=== PATIENT | female | born 1975 | race Hispanic/Latino ===

== ENCOUNTER 2016-11-01 11:06 | Emergency (ER) | payer MEDICAID ==
[2016-11-01 12:02] LABS: Basophils % (Auto) 2.3 % (0.0-1.8); Eosinophils % (Auto) 2.3 % (0.0-4.3); Hematocrit 29.5 % (30.3-42.9); Mean Corpuscular HGB Conc 31 % (30-34); Platelet Count 325 K/mm3 (140-440); Red Blood Count 4.31 M/mm3 (3.65-5.03); Red Cell Distribution Width 18.7 % (13.2-15.2); White Blood Count 7.3 K/mm3 (4.5-11.0)
[2016-11-01 12:04] LABS: Mean Corpuscular Hemoglobin 21 pg (28-32); Mean Corpuscular Volume 68 fl (79-97)
[2016-11-01 12:12] LABS: Alanine Aminotransferase 19 units/L (7-56); Albumin 3.6 g/dL (3.9-5); Albumin/Globulin Ratio 0.9 %; Alkaline Phosphatase 61 units/L (35-129); Anion Gap 16 mmol/L; Blood Urea Nitrogen 6 mg/dL (7-17); Calcium 8.7 mg/dL (8.4-10.2); Carbon Dioxide 24 mmol/L (22-30); Glucose 110 mg/dL (65-100); Lipase 149 units/L (13-60); Potassium 3.9 mmol/L (3.6-5.0); Sodium 139 mmol/L (137-145); Total Protein 7.5 g/dL (6.3-8.2)
[2016-11-01 12:16] LABS: Bilirubin,Urine NEG (Negative); Blood,Urine NEG (Negative); Ketones,Urine NEG (Negative); Leukocyte Esterase,Urine SM (Negative); Mucus,Urine FEW /HPF; Nitrite,Urine NEG (Negative); Protein,Urine <15 mg/dL mg/dL (Negative); Urobilinogen,Urine < 2.0 mg/dL (<2.0)
[2016-11-01] MEDS ORDERED: ZOFRAN IV ONE (19:54)
[2016-11-01] MEDS ORDERED: DILAUDID IV ONE (19:54)
[2016-11-01] MEDS ORDERED: NACL 0.9% 1000 ML 1,000 ML IV ONE (19:54)
[2016-11-01] MEDS ORDERED: NACL ONE (19:57)
--- NOTE | 2016-11-01 20:10 | Emergency Department Report ---
ED Abdominal Pain HPI - General Chief Complaint: Abdominal Pain Stated Complaint: N/V/D HX/PANCREATITIS Time Seen by Provider: 11/01/16 19:54 Source: patient Mode of arrival: Ambulatory Limitations: No Limitations - History of Present Illness MD Complaint: abdominal pain -: Gradual Location: diffuse Radiation: none Migration to: no migration Severity: moderate Severity scale (0 -10): 4 Quality: cramping, fullness Consistency: intermittent Improves With: nothing Worsens With: nothing Associated Symptoms: nausea, diarrhea. denies: vomiting, fever - Related Data Previous Rx's Medication Instructions Recorded Last Taken Type Sulfamethoxazole/Trimethoprim 1 each PO BID #10 tablet 12/08/15 Unknown Rx [Bactrim DS TAB] Allergies Allergy/AdvReac Type Severity Reaction Status Date / Time NSAIDS (Non-Steroidal Allergy Unknown Verified 01/11/15 08:32 Anti-Inflamma ED Review of Systems ROS: Stated complaint: N/V/D HX/PANCREATITIS Other details as noted in HPI Comment: All other systems reviewed and negative ED Past Medical Hx - Past Medical History Hx Congestive Heart Failure: No Hx Diabetes: No Hx Asthma: No Hx COPD: No Hx HIV: No Additional medical history: pancreatitis - Surgical History Hx Cholecystectomy: Yes Additional Surgical History: csection, gastric bypass 3 years ago - Social History Smoking Status: Never Smoker Substance Use Type: None - Medications Home Medications: Home Medications Medication Instructions Recorded Confirmed Last Taken Type Sulfamethoxazole/Trimethoprim 1 each PO BID #10 tablet 12/08/15 Unknown Rx [Bactrim DS TAB] ED Physical Exam - General Limitations: No Limitations General appearance: alert, in no apparent distress - Head Head exam: Present: atraumatic, normocephalic - Eye Eye exam: Present: normal appearance - ENT ENT exam: Present: mucous membranes moist - Neck Neck exam: Present: normal inspection - Respiratory Respiratory exam: Present: normal lung sounds bilaterally. Absent: respiratory distress - Cardiovascular Cardiovascular Exam: Present: regular rate, normal rhythm. Absent: systolic murmur, diastolic murmur, rubs, gallop - GI/Abdominal GI/Abdominal exam: Present: soft, normal bowel sounds. Absent: distended, tenderness, guarding, rebound, rigid - Extremities Exam Extremities exam: Present: normal inspection - Back Exam Back exam: Present: normal inspection - Neurological Exam Neurological exam: Present: alert, oriented X3 - Psychiatric Psychiatric exam: Present: normal affect, normal mood - Skin Skin exam: Present: warm, dry, intact, normal color. Absent: rash ED Course Vital Signs 11/01/16 11/01/16 11:24 20:27 Temperature 98.5 F Pulse Rate 112 H Respiratory 14 Rate Blood Pressure 171/117 O2 Sat by Pulse 100 Oximetry ED Medical Decision Making - Lab Data Result diagrams: 11/01/16 11:38 11/01/16 11:38 - Medical Decision Making patient been doing well here in the ER, tolerating po here in the ER, labs with mild pancreatitis, abdominal CT is negative for acute process, will dc and follow up with GI as outpatient. Critical care attestation.: If time is entered above; I have spent that time in minutes in the direct care of this critically ill patient, excluding procedure time. ED Disposition Clinical Impression: Acute pancreatitis Disposition: DC-01 TO HOME OR SELFCARE Is pt being admited?: No Does the pt Need Aspirin: No Condition: Stable Instructions: Abdominal Pain (ED) Referrals: PRIMARY CARE, [Primary Care Provider] - 3-5 Days Time of Disposition: 21:09
--- NOTE | 2016-11-01 21:01 | Cat Scan Report ---
FINAL REPORT PROCEDURE: CT abdomen and pelvis with contrast. TECHNIQUE: Computerized axial tomography of the abdomen and pelvis was performed after the IV injection of iodinated nonionic contrast. HISTORY: Abdominal pain. COMPARISON: No prior studies are available for comparison. FINDINGS: There is degradation of image quality because of the patient's obesity. The lung bases are clear. There are no pleural effusions. The heart size is normal. The liver, spleen and pancreas appear normal. Cholecystectomy clips are present. There is no biliary dilatation. The adrenal glands are not enlarged. Both kidneys appear normal in size and configuration. The abdominal aorta has a normal caliber. There is no retroperitoneal adenopathy. There are some surgical clips in the stomach. The unopacified gastrointestinal tract is unremarkable. A normal appendix is visible. The bladder, uterus and adnexal regions appear normal. There are 2 lower ventral wall hernias, each containing abdominal fat. The regional skeleton appears intact. IMPRESSION: Previous cholecystectomy. Two lower ventral wall hernias containing abdominal fat. No definite signs of acute disease in the abdomen or pelvis.
[2016-11-01 21:34] LABS: INR 1.14 (0.87-1.13)
[2016-11-01 22:12] VITALS: BP 142/78
== END 2016-11-01 22:00 | disposition home or self-care (01) ==
LOC: ED 11:06
DX: K85.90 Acute pancreatitis without necrosis or infection, unspecified (principal); Z90.49 Acquired absence of other specified parts of digestive tract
CPT/HCPCS: 36415; 74177; 80048; 80053; 81001; 81025; 83690; 84702; 85025; 85610; 93005; 93010; 96361; 96374; 96375; 99284; J1170; J2405; J7030; Q9967

== ENCOUNTER 2019-09-02 18:30 | Emergency (ER) | payer MEDICAID ==
--- NOTE | 2019-09-02 19:01 | Emergency Department Report ---
ED Abdominal Pain HPI - General Chief Complaint: Abdominal Pain Stated Complaint: STOMACH PAIN/NAUSEA Time Seen by Provider: 09/02/19 19:01 Source: patient Mode of arrival: Ambulatory Limitations: No Limitations - History of Present Illness Initial Comments: 44-year-old female presents to the emergency room complaining of epigastric abdominal pain with nausea and vomiting. Patient reports she has a history of pancreatitis. Patient reports that she has had 2 gastric bypass surgeries last one was 3 years ago. Patient reports has had a total weight loss of approximately 260 pounds combined with both surgeries. Patient states that she has not had any abnormal diarrhea. Patient reports she has had 2 hospitalizations for her pancreatitis. Patient states she was on Protonix 6 months completed treatment. Patient states that her pain is a 6 out of 10. Patient states that the pain started yesterday and get gotten worse today and gets better after she vomits. Patient states that this is intermittent. Patient reports a past medical history of migraines and anemia and pancreatitis. MD Complaint: abdominal pain Onset/Timin Location: epigastric Radiation: none Migration to: no migration Severity scale (0 -10): 6 Quality: sharp Consistency: intermittent Improves With: vomiting Worsens With: nothing Associated Symptoms: nausea, vomiting, diarrhea (normal) - Related Data Home Medications Medication Instructions Recorded Confirmed Last Taken Folic Acid/Multivit-Min/Lutein 1 each PO DAILY 12/16/16 12/22/16 12/21/16 09:00 [Adult Multivitamin Gummies] Previous Rx's Medication Instructions Recorded Last Taken Type HYDROcodone/ACETAMINOPHEN [Vicodin 1 each PO Q6HR PRN 3 Days #12 09/02/19 Unknown Rx Hp 10-300 mg Tablet] tablet Ondansetron [Zofran Odt] 4 mg PO Q8HR #15 tab.rapdis 09/02/19 Unknown Rx Allergies Allergy/AdvReac Type Severity Reaction Status Date / Time NSAIDS (Non-Steroidal Allergy Unknown Verified 12/16/16 17:51 Anti-Inflamma ED Review of Systems ROS: Stated complaint: STOMACH PAIN/NAUSEA Other details as noted in HPI Comment: All other systems reviewed and negative ED Past Medical Hx - Past Medical History Previous Medical History?: Yes Hx Hypertension: No Hx Congestive Heart Failure: No Hx Diabetes: No Hx Headaches / Migraines: Yes Hx Asthma: No Hx COPD: No Hx HIV: No Additional medical history: pancreatitis - Surgical History Past Surgical History?: Yes Hx Cholecystectomy: Yes Additional Surgical History: csection, gastric bypass 3 years ago - Social History Smoking Status: Never Smoker Substance Use Type: None - Medications Home Medications: Home Medications Medication Instructions Recorded Confirmed Last Taken Type Folic Acid/Multivit-Min/Lutein 1 each PO DAILY 12/16/16 12/22/16 12/21/16 09:00 History [Adult Multivitamin Gummies] HYDROcodone/ACETAMINOPHEN [Vicodin 1 each PO Q6HR PRN 3 Days #12 09/02/19 Unknown Rx Hp 10-300 mg Tablet] tablet Ondansetron [Zofran Odt] 4 mg PO Q8HR #15 tab.rapdis 09/02/19 Unknown Rx ED Physical Exam - General Limitations: No Limitations General appearance: alert, in no apparent distress, obese - Head Head exam: Present: atraumatic, normocephalic - Eye Eye exam: Present: normal appearance - ENT ENT exam: Present: mucous membranes moist - Respiratory Respiratory exam: Present: normal lung sounds bilaterally. Absent: respiratory distress - Cardiovascular Cardiovascular Exam: Present: regular rate, normal rhythm. Absent: systolic murmur, diastolic murmur, rubs, gallop - GI/Abdominal GI/Abdominal exam: Present: soft, tenderness (epigastric). Absent: distended - Neurological Exam Neurological exam: Present: alert, oriented X3 - Psychiatric Psychiatric exam: Present: normal affect, normal mood - Skin Skin exam: Present: warm, dry, intact, normal color. Absent: rash ED Course Vital Signs 09/02/19 18:36 Temperature 97.7 F Pulse Rate 83 Respiratory 20 Rate Blood Pressure 128/71 O2 Sat by Pulse 100 Oximetry - Reevaluation(s) Reevaluation #1: 09/02/19 22:36 Patient reports that her pain has improved she has no more nausea and vomiting. ED Medical Decision Making - Lab Data Result diagrams: 09/02/19 19:03 09/02/19 19:03 - Radiology Data Radiology results: report reviewed Patient: LARRY IBARRA MR#: [id number] : 1975 Acct:[id number] Age/Sex: 44 / F ADM Date: 09/02/19 Loc: ED Attending Dr: Ordering Physician: YVONNE KOEHLER Date of Service: 09/02/19 Procedure(s): CT abdomen pelvis w con Accession Number(s): [id number] cc: YVONNE KOEHLER CT ABDOMEN AND PELVIS WITH CONTRAST HISTORY: MAIN: abd pain epigastric, ABD PAIN X 3 WEEKS WORSE TODAY, PT STS, GB REMOVED AND HX OF PANCREATITIS, 100CC [id number]. COMPARISON: CT abdomen/pelvis from 11/01/2016 TECHNIQUE: CT images of the abdomen and pelvis were obtained following administration of intravenous contrast. All CT scans at this location are performed using CT dose reduction for ALARA by means of automated exposure control. CONTRAST: 100 ml of intravenous contrast administered. FINDINGS: Lungs/bones: Lung bases are clear. There are degenerative changes within the spine and pelvis with no acute osseous abnormality identified. Abdomen/pelvis: The gallbladder is surgically absent. There is borderline hepatic steatosis. The spleen, pancreas, right adrenal gland, and kidneys appear unremarkable. There is a stable small left adrenal nodule, likely an adenoma. Gastric bypass changes are present. Urinary bladder is unremarkable. There is a small amount of fluid within the end ometrial canal but otherwise unremarkable appearance of the reproductive organs. No pelvic free fl uid or acute colonic abnormality identified. Some of the bowel is matted against the anterior abdo ethan wall which can be seen with adhesive disease. No bowel obstruction identified. Small fat-cont aining hernias arising from the anterior midline lower abdomen/pelvis again noted with no inflammatory change or bowel obstruction identified. IMPRESSION: 1. No acute abnormality identified. 2. Incidental and postoperative findings as outlined above. Signer Name: Al Sloan MD Signed: 09/02/2019 9:05 PM Workstation Name: [id number] Transcribed By: JW Dictated By: Al Sloan MD Electronically Authenticated By: Al Sloan MD Signed Date/Time: 09/02/192104 DD/ 01 TD/TT: - Medical Decision Making 44-year-old female presents to the emergency room complaining of epigastric abdominal pain with nausea and vomiting. Patient reports she has a history of pancreatitis. Patient reports that she has had 2 gastric bypass surgeries last one was 3 years ago. Patient reports has had a total weight loss of approximately 260 pounds combined with both surgeries. Patient states that she has not had any abnormal diarrhea. Patient reports she has had 2 hospitalizations for her pancreatitis. Patient states she was on Protonix 6 months completed treatment. Patient states that her pain is a 6 out of 10. Patient states that the pain started yesterday and get gotten worse today and gets better after she vomits. Patient states that this is intermittent. Patient reports a past medical history of migraines and anemia and pancreatitis. Critical care attestation.: If time is entered above; I have spent that time in minutes in the direct care of this critically ill patient, excluding procedure time. ED Disposition Clinical Impression: Elevated LFTs Abdominal pain Qualifiers: Abdominal location: upper abdomen, unspecified Qualified Code(s): R10.10 - Upper abdominal pain, unspecified Disposition: TO HOME OR SELFCARE Is pt being admited?: No Does the pt Need Aspirin: No Condition: Stable Instructions: Abdominal Pain (ED) Additional Instructions: Take pain medication as needed. Please do not operate heavy machinery while taking medication. It is very important for you to follow-up with your primary care provider for elevated liver function enzymes. Also recommend to follow-up with a booster plant operator. I have listed their information below for your convenience. Return to the emergency room for any worsening symptoms not able to drink fluids develop a fever worsening pain. Prescriptions: HYDROcodone/ACETAMINOPHEN [Vicodin Hp 10-300 mg Tablet] 1 each PO Q6HR PRN 3 Days #12 tablet PRN Reason: Pain , Severe (7-10) Ondansetron [Zofran Odt] 4 mg PO Q8HR #15 tab.rapdis Referrals: PRIMARY MD RADHA [Primary Care Provider] - 3-5 Days UNRULY DEE MD [Staff Physician] - 3-5 Days ERIKA IBRAHIM MD [Referring] - 3-5 Days SRINI MARINA MD [Referring] - 3-5 Days
[2019-09-02] MEDS ORDERED: ONDANSETRON 4 MG ODT TAB PO ONE (19:22)
[2019-09-02 19:23] LABS: Bacteria,Urine 1+ /HPF (Negative); Bilirubin,Urine SM (Negative); Blood,Urine MOD (Negative); Color,Urine Amber (Yellow); Mucus,Urine FEW /HPF; Protein,Urine <15 mg/dL mg/dL (Negative)
[2019-09-02 19:25] LABS: HCG Qualitative,Urine Negative (Negative)
[2019-09-02 19:30] LABS: Ictotest,Urine Positive (Negative)
[2019-09-02 19:51] LABS: Basophils # (Auto) 0.1 K/mm3 (0.0-0.1); Basophils % (Auto) 0.7 % (0.0-1.8); Eosinophils # (Auto) 0.2 K/mm3 (0.0-0.4); Eosinophils % (Auto) 2.2 % (0.0-4.3); Hematocrit 35.6 % (30.3-42.9); Hemoglobin 11.7 gm/dl (10.1-14.3); Lymphocytes # (Auto) 1.2 K/mm3 (1.2-5.4); Lymphocytes % (Auto) 17.1 % (13.4-35.0); Mean Corpuscular HGB Conc 33 % (30-34); Mean Corpuscular Volume 88 fl (79-97); Monocytes # (Auto) 0.4 K/mm3 (0.0-0.8); Monocytes % (Auto) 5.5 % (0.0-7.3); Platelet Count 228 K/mm3 (140-440); Red Blood Count 4.03 M/mm3 (3.65-5.03); Red Cell Distribution Width 14.2 % (13.2-15.2)
[2019-09-02 20:08] LABS: Alanine Aminotransferase 442 units/L (7-56); Albumin 3.9 g/dL (3.9-5); BUN/Creatinine Ratio 14; Blood Urea Nitrogen 7 mg/dL (7-17); Calcium 8.5 mg/dL (8.4-10.2); Hemolysis Index 5
--- NOTE | 2019-09-02 21:10 | Cat Scan Report ---
CT ABDOMEN AND PELVIS WITH CONTRAST HISTORY: MAIN: abd pain epigastric, ABD PAIN X 3 WEEKS WORSE TODAY, PT STS, GB REMOVED AND HX OF PANC REATITIS, 100CC [id number]. COMPARISON: CT abdomen/pelvis from 11/01/2016 TECHNIQUE: CT images of the abdomen and pelvis were obtained following administration of intravenous contrast. All CT scans at this location are performed using CT dose reduction for ALARA by means of automated exposure control. CONTRAST: 100 ml of intravenous contrast administered. FINDINGS: Lungs/bones: Lung bases are clear. There are degenerative changes within the spine and pelvis with n o acute osseous abnormality identified. Abdomen/pelvis: The gallbladder is surgically absent. There is borderline hepatic steatosis. The spl een, pancreas, right adrenal gland, and kidneys appear unremarkable. There is a stable small left adr enal nodule, likely an adenoma. Gastric bypass changes are present. Urinary bladder is unremarkable. There is a small amount of fluid within the endometrial canal but ot herwise unremarkable appearance of the reproductive organs. No pelvic free fluid or acute colonic abn ormality identified. Some of the bowel is matted against the anterior abdominal wall which can be see n with adhesive disease. No bowel obstruction identified. Small fat-containing hernias arising from t he anterior midline lower abdomen/pelvis again noted with no inflammatory change or bowel obstruction identified. IMPRESSION: 1. No acute abnormality identified. 2. Incidental and postoperative findings as outlined above. Signer Name: Al Sloan MD Signed: 09/02/2019 9:05 PM Workstation Name: [id number]
[2019-09-02] MEDS ORDERED: HYDROcodone/ACETAMINOPHEN 5-325 MG TAB PO ONE (21:36)
[2019-09-02 22:58] VITALS: BP 129/65
== END 2019-09-02 22:58 | disposition home or self-care (01) ==
LOC: ED 18:30
DX: R79.89 Other specified abnormal findings of blood chemistry (principal); R10.13 Epigastric pain; R11.2 Nausea with vomiting, unspecified; R19.7 Diarrhea, unspecified; G43.909 Migraine, unspecified, not intractable, without status migrainosus; K85.90 Acute pancreatitis without necrosis or infection, unspecified; Z90.49 Acquired absence of other specified parts of digestive tract; Z79.899 Other long term (current) drug therapy; Z88.8 Allergy status to other drugs, medicaments and biological substances
CPT/HCPCS: 36415; 74177; 80053; 81001; 81025; 83690; 85025; 99284; Q9967; Q0162

== ENCOUNTER 2019-09-21 02:17 | Emergency (ER) | payer MEDICAID ==
[2019-09-21 02:21] VITALS: BP 152/87
== END 2019-09-21 02:19 | disposition left against medical advice (07) ==
LOC: ED 02:17
DX: R10.9 Unspecified abdominal pain (principal); Z53.21 Procedure and treatment not carried out due to patient leaving prior to being seen by health care provider